=== PATIENT | male | born 1985 | race Caucasian/White ===

== ENCOUNTER 2024-12-16 10:16 | Emergency (ER) | payer OTHER ==
[~2024-12-16] VITALS: Ht 172.7 cm; Wt 87.5 kg
[2024-12-16] MEDS ORDERED: Bactrim Ds Tab1 EACH PO (10:56)
== END 2024-12-16 11:23 | disposition home or self-care (01) ==
LOC: ER 10:16
DX: L03.114 Cellulitis of left upper limb (principal); Z59.89 Other problems related to housing and economic circumstances; Z79.2 Long term (current) use of antibiotics
CPT/HCPCS: 10060; 99283-25